=== PATIENT | female | born 1970 | race Two or more races ===

== ENCOUNTER 2024-10-16 15:41 | Emergency (ER) | payer OTHER ==
[~2024-10-16] VITALS: Ht 152.4 cm; Wt 51.7 kg
[2024-10-16] MEDS ORDERED: GUAIFENESIN 200 MG/10 ML BLIST.PACK PO STA (18:14)
[2024-10-16] MEDS ORDERED: DIPHENHYDRAMINE HCL 50 MG/ML VIAL 1ML IM STA (18:15)
[2024-10-16] MEDS ORDERED: TYLENOL COLD &1 EACH PO (19:53)
[2024-10-16] MEDS ORDERED: ZITHROMAX500 MG PO (19:53)
== END 2024-10-17 16:45 | disposition home or self-care (01) ==
LOC: ER 15:41
DX: J32.9 Chronic sinusitis, unspecified (principal); H93.8X9 Other specified disorders of ear, unspecified ear

== ENCOUNTER 2024-10-20 16:22 | Emergency (ER) | payer OTHER ==
[~2024-10-20] VITALS: Ht 149.9 cm; Wt 54.4 kg
[~2024-10-20 16:22] MED LIST: TYLENOL COLD &1 EACH PO; ZITHROMAX500 MG PO
[2024-10-20] MEDS ORDERED: FLONASE16 GM NASAL (17:40)
== END 2024-10-20 18:04 | disposition home or self-care (01) ==
LOC: ER 16:22
DX: J32.9 Chronic sinusitis, unspecified (principal); H93.8X9 Other specified disorders of ear, unspecified ear